=== PATIENT | male | born 1955 | race Caucasian/White ===

== ENCOUNTER 2017-03-30 18:25 | Inpatient (IN) | payer MEDICAID ==
[~2017-03-30] VITALS: Ht 175.3 cm; Wt 78.6 kg
[2017-03-30 19:35] LABS: Hematocrit 32.9 % (41.0-53.0); Hemoglobin 10.3 g/dL (13.5-17.5); Mean Corpuscular Hemoglobin 28.7 pg (28.0-32.0); Mean Corpuscular Hgb Conc. 31.2 g/dL (32.0-36.0); Mean Corpuscular Volume 91.9 fL (80.0-100.0); Mean Platelet Volume 6.4 fL (6.9-10.8); Platelet Count (auto) 440 10^3/uL (140-450)
[2017-03-30 19:38] LABS: Red Cell Distribution Width 21.6 % (11.8-14.3)
[2017-03-30 19:39] LABS: Metamyelocytes % 0; Myelocytes % 0; Promyelocytes % 0; Reactive Lymphocytes 0
[2017-03-30 19:55] LABS: Albumin 1.9 g/dL (3.4-5.0); Alkaline Phosphatase 638 U/L (45-117); Anion Gap 19 (5-15); Aspartate Aminotransferase 131 U/L (15-37); BUN/Creatinine Ratio 24.1; Bilirubin, Total 1.6 mg/dL (0.2-1.0); Blood Urea Nitrogen 19 mg/dL (7-18); Calcium 9.1 mg/dL (8.5-10.1); Carbon Dioxide 19 mmol/L (21-32); Chloride 95 mmol/L (98-107); GFR African American 128 mL/min; GFR Non-African American 106 mL/min; Glucose 116 mg/dL (74-106); Magnesium 2.2 mg/dL (1.6-2.6); Potassium 4.1 mmol/L (3.5-5.1); Sodium 133 mmol/L (136-145); Total Protein 7.4 g/dL (6.4-8.2)
[2017-03-30 20:09] LABS: Anisocytosis Slight; Platelet Estimate Adequate
[2017-03-30 22:42] LABS: Urine Bilirubin 1+ (Negative); Urine Blood Negative /uL (Negative); Urine Color Brown (Yellow); Urine Glucose Normal (Normal); Urine Hyaline Cast MANY /lpf (0 - 2); Urine Ketone TRACE (Negative); Urine Mucus FEW (None Seen); Urine Nitrite Negative (Negative); Urine RBC <1 /hpf (0 - 3); Urine Squamous Epithelial Cell FEW /hpf (<5)
[2017-03-31] MEDS ORDERED: ONDANSETRON HCL 4 MG/2 ML VIAL IV ONE (01:15)
[2017-03-31] MEDS ORDERED: HYDROmorphone HCL 2 MG/ML VL IV ONE (01:15)
[2017-03-31] MEDS ORDERED: IOHEXOL 300 MG/ML 100ML BOTTLE IJ ONE (01:37)
[2017-03-31] MEDS ORDERED: GASTROGRAFIN 30 ML SOL ONE (01:37)
[2017-03-31] MEDS ORDERED: SODIUM CHLORIDE 0.9% 1,000 ML IV ONE (05:30)
[2017-03-31] MEDS ORDERED: NITROGLYCERIN 0.4 MG SL TAB SL PRN (06:00)
[2017-03-31] MEDS ORDERED: FUROSEMIDE 20 MG/2 ML VIAL IV ONE (06:30)
[2017-03-31] MEDS ORDERED: LORazepam 0.5 MG TAB PO PRN (06:30)
[2017-03-31 06:37] LABS: White Blood Cell 2.4 10^3/uL (4.4-10.8)
[2017-03-31 06:39] LABS: Hematocrit 30.1 % (41.0-53.0); Mean Corpuscular Hemoglobin 29.3 pg (28.0-32.0); Mean Corpuscular Hgb Conc. 33.2 g/dL (32.0-36.0); Mean Corpuscular Volume 88.2 fL (80.0-100.0); Mean Platelet Volume 6.3 fL (6.9-10.8); Platelet Count (auto) 466 10^3/uL (140-450)
[2017-03-31 06:41] LABS: Red Cell Distribution Width 21.9 % (11.8-14.3)
[2017-03-31 06:42] LABS: INR 3.86 (0.9-1.15); Metamyelocytes % 0; Myelocytes % 0; Partial Thromboplastin Time 40.9 sec (22.64-33.71); Promyelocytes % 0; Prothrombin Time 42.6 sec (9.37-12.3); Reactive Lymphocytes 0
[2017-03-31] MEDS ORDERED: MORP60TA25 PO (07:22)
[2017-03-31] MEDS ORDERED: HYDR-4683 PO (07:25)
[2017-03-31] MEDS ORDERED: FERR325T PO (07:25)
[2017-03-31] MEDS ORDERED: PRE5T PO (07:25)
[2017-03-31] MEDS ORDERED: LORA1TAB12 PO (07:25)
[2017-03-31] MEDS ORDERED: PRO10T PO (07:25)
[2017-03-31] MEDS: MORPHINE SULF INJ 2 MG/ML SYRINGE 1ML IV PRN ×4 (07:45→20:00)
[2017-03-31] MEDS: ONDANSETRON HCL 4 MG/2 ML VIAL IV PRN ×3 (07:45→20:00)
[2017-03-31 07:46] LABS: B-Type Natriuretic Peptide 46.22 pg/mL (0-100); Temperature: 23.1 C (20.0-25.0)
[2017-03-31 07:48] LABS: Albumin 1.9 g/dL (3.4-5.0); BUN/Creatinine Ratio 30.8; Bilirubin, Total 1.9 mg/dL (0.2-1.0); Potassium 4.2 mmol/L (3.5-5.1); Total Protein 7.2 g/dL (6.4-8.2)
[2017-03-31 09:30] VITALS: BP 130/79
[2017-03-31 09:52] VITALS: BP 130/79
[2017-03-31 11:08] LABS: Platelet Estimate Increased
[2017-03-31 11:09] LABS: Anisocytosis Slight
[2017-03-31 13:16] VITALS: BP 126/71
[2017-03-31 16:50] VITALS: BP 142/68
[2017-03-31 16:52] VITALS: BP 142/68
[2017-03-31 22:00] VITALS: BP 147/83
[2017-04-01] MEDS: MORPHINE SULF INJ 2 MG/ML SYRINGE 1ML IV PRN ×7 (00:01→22:37)
[2017-04-01 05:00] VITALS: BP 133/74
[2017-04-01 05:53] LABS: Hematocrit 28.2 % (41.0-53.0); Hemoglobin 9.5 g/dL (13.5-17.5); Mean Corpuscular Hemoglobin 29.5 pg (28.0-32.0); Mean Corpuscular Hgb Conc. 33.8 g/dL (32.0-36.0); Mean Corpuscular Volume 87.2 fL (80.0-100.0); Mean Platelet Volume 6.3 fL (6.9-10.8); Platelet Count (auto) 359 10^3/uL (140-450); White Blood Cell 2.7 10^3/uL (4.4-10.8)
[2017-04-01] MEDS: ONDANSETRON HCL 4 MG/2 ML VIAL IV PRN (05:53)
[2017-04-01 06:00] LABS: Red Cell Distribution Width 21.4 % (11.8-14.3)
[2017-04-01 06:01] LABS: Albumin 1.6 g/dL (3.4-5.0); INR 2.65 (0.9-1.15); Magnesium 2.3 mg/dL (1.6-2.6); Potassium 3.9 mmol/L (3.5-5.1); Prothrombin Time 29.2 sec (9.37-12.3)
[2017-04-01 06:03] LABS: BUN/Creatinine Ratio 25.5; Myelocytes % 0; Promyelocytes % 0; Reactive Lymphocytes 0
[2017-04-01 06:06] LABS: Bilirubin, Total 2.2 mg/dL (0.2-1.0); Total Protein 6.4 g/dL (6.4-8.2)
[2017-04-01 07:49] VITALS: BP 133/74
[2017-04-01 08:37] VITALS: BP 116/65
[2017-04-01 09:16] LABS: Metamyelocytes % 1
[2017-04-01 09:17] LABS: Platelet Estimate Adequate
[2017-04-01 09:18] LABS: Anisocytosis Slight
[2017-04-01] MEDS: HYDROcodone-ACET 7.5/325MG TAB PO PRN ×3 (12:20→21:17)
[2017-04-01 12:28] VITALS: BP 120/73
[2017-04-01] MEDS ORDERED: SODIUM CHLORIDE 0.9% 1,000 ML IV SCH (16:00)
[2017-04-01 17:06] VITALS: BP 112/66
[2017-04-01] MEDS: SODIUM CHLORIDE 0.9% 1,000 ML IV SCH (18:15)
[2017-04-01 23:00] VITALS: BP 130/71
[2017-04-02] MEDS: HYDROcodone-ACET 7.5/325MG TAB PO PRN ×4 (01:08→19:51)
[2017-04-02] MEDS: MORPHINE SULF INJ 2 MG/ML SYRINGE 1ML IV PRN ×5 (03:22→22:49)
[2017-04-02] MEDS: SODIUM CHLORIDE 0.9% 1,000 ML IV SCH ×2 (03:22→14:15)
[2017-04-02 05:35] LABS: Hematocrit 27.6 % (41.0-53.0); Hemoglobin 9.3 g/dL (13.5-17.5); Mean Corpuscular Hemoglobin 29.3 pg (28.0-32.0); Mean Corpuscular Hgb Conc. 33.6 g/dL (32.0-36.0); Mean Corpuscular Volume 87.2 fL (80.0-100.0); Mean Platelet Volume 6.2 fL (6.9-10.8); Platelet Count (auto) 342 10^3/uL (140-450); White Blood Cell 3.7 10^3/uL (4.4-10.8)
[2017-04-02 05:45] LABS: Metamyelocytes % 0; Myelocytes % 0; Promyelocytes % 0; Reactive Lymphocytes 0; Red Cell Distribution Width 21.5 % (11.8-14.3)
[2017-04-02 05:52] VITALS: BP 126/81
[2017-04-02 05:56] LABS: Potassium 3.6 mmol/L (3.5-5.1)
[2017-04-02 05:57] LABS: Calcium 8.7 mg/dL (8.5-10.1)
[2017-04-02 06:46] LABS: Anisocytosis Slight; Platelet Estimate Adequate
[2017-04-02 06:47] LABS: Ovalocytes FEW
[2017-04-02 09:00] VITALS: BP 110/71
[2017-04-02 13:40] VITALS: BP 117/75
[2017-04-02 17:19] VITALS: BP 107/74
[2017-04-02 22:00] VITALS: BP 122/68
[2017-04-03] MEDS: HYDROcodone-ACET 7.5/325MG TAB PO PRN ×3 (00:13→19:58)
[2017-04-03 05:00] VITALS: BP 108/72
[2017-04-03 05:59] LABS: Mean Corpuscular Hemoglobin 29.1 pg (28.0-32.0); Mean Corpuscular Hgb Conc. 33.5 g/dL (32.0-36.0); Mean Corpuscular Volume 86.9 fL (80.0-100.0); Mean Platelet Volume 6.4 fL (6.9-10.8); Platelet Count (auto) 337 10^3/uL (140-450); White Blood Cell 6.7 10^3/uL (4.4-10.8)
[2017-04-03 06:03] LABS: Calcium 8.4 mg/dL (8.5-10.1); Potassium 3.8 mmol/L (3.5-5.1)
[2017-04-03 06:05] LABS: BUN/Creatinine Ratio 21.6
[2017-04-03 06:07] LABS: Promyelocytes % 0; Reactive Lymphocytes 0; Red Cell Distribution Width 21.8 % (11.8-14.3)
[2017-04-03] MEDS: MORPHINE SULF INJ 2 MG/ML SYRINGE 1ML IV PRN ×4 (06:43→22:19)
[2017-04-03] MEDS: ONDANSETRON HCL 4 MG/2 ML VIAL IV PRN ×2 (08:24→17:44)
[2017-04-03 09:00] LABS: Metamyelocytes % 2; Myelocytes % 1; Platelet Estimate Adequate
[2017-04-03 09:01] LABS: Anisocytosis Slight; Tear Drop Cells FEW
[2017-04-03 09:44] VITALS: BP 125/70
[2017-04-03] MEDS: SODIUM CHLORIDE 0.9% 1,000 ML IV SCH ×2 (10:15→19:00)
[2017-04-03 14:10] VITALS: BP 120/71
[2017-04-03 17:32] VITALS: BP 121/55
[2017-04-03] MEDS: PRO-STAT 64 30ML PO SCH (18:00)
[2017-04-03] MEDS: NutriHep 250 mL Bottle PO SCH (18:00)
[2017-04-03 21:29] VITALS: BP 115/66
[2017-04-04] MEDS: HYDROcodone-ACET 7.5/325MG TAB PO PRN ×3 (00:09→10:54)
[2017-04-04] MEDS: MORPHINE SULF INJ 2 MG/ML SYRINGE 1ML IV PRN ×2 (02:38→06:44)
[2017-04-04 05:21] VITALS: BP 106/70
[2017-04-04] MEDS: NutriHep 250 mL Bottle PO SCH ×2 (08:31→12:00)
[2017-04-04] MEDS: PRO-STAT 64 30ML PO SCH ×2 (08:31→12:00)
[2017-04-04 09:00] VITALS: BP 111/66
[2017-04-04] MEDS ORDERED: GADOPENTETATE DIMEGLUMINE (10MMOL/20 ML) VIAL IV ONE (10:05)
[2017-04-04 11:56] LABS: Temperature: 21.5 C (20.0-25.0)
[2017-04-04 12:51] VITALS: BP 129/93
[2017-04-04 13:00] VITALS: BP 122/74
== END 2017-04-04 13:40 | disposition home health service (06) | DRG 660 ==
LOC: ER 18:25 → TELE 18:26 → TELE-WESTW 03-31 09:30
PROVIDERS: ADMIT Nurse Practitioner Family; ATTEND Nurse Practitioner Family
DX: D61.810 Antineoplastic chemotherapy induced pancytopenia (principal); G92 Toxic encephalopathy; C78.00 Secondary malignant neoplasm of unspecified lung; C78.7 Secondary malignant neoplasm of liver and intrahepatic bile duct; C18.9 Malignant neoplasm of colon, unspecified; E86.0 Dehydration; E87.1 Hypo-osmolality and hyponatremia; I73.9 Peripheral vascular disease, unspecified; T45.1X5A Adverse effect of antineoplastic and immunosuppressive drugs, initial encounter; Z85.038 Personal history of other malignant neoplasm of large intestine; Y92.89 Other specified places as the place of occurrence of the external cause
CPT/HCPCS: 36415; 70450; 70553; 71250; 74176; 80048; 80053; 81001; 82140; 82607; 82746; 82962; 83735; 83880; 84443; 84484; 85007; 85027; 85610; 85730; 86592; 93005; J2405